=== PATIENT | male | born 1960 | race Caucasian/White ===

== ENCOUNTER 2017-08-09 10:16 | Emergency (ER) | payer SELFPAY ==
[2017-08-09 10:18] VITALS: BMI 23.3
[2017-08-09] MEDS ORDERED: Lidocaine 1% 5ml Abboject IV ONE (11:04)
[2017-08-09] MEDS ORDERED: Lidocaine 1% 20 MG/2 ML PF AMP SC ONE (11:06)
[2017-08-09] MEDS ORDERED: Lidocaine 1% 20 MG/2 ML PF AMP ONE (11:07)
[2017-08-09] MEDS: Sodium Chloride 0.9% 1,000 ML IV SCH ×13 (11:17→17:26)
--- NOTE | 2017-08-09 11:58 | ED PDOC ---
HPI: Head Injury Time Seen by Provider: 08/09/17 10:23 Chief Complaint (Nursing): Abnormal Skin Integrity Chief Complaint (Provider): laceration to left eyebrow after fall History Per: Patient History/Exam Limitations: intoxication Injury Occurred (Timing): Days Ago: Onset/Duration Of Symptoms: Days (1) Patient States: Fell Striking Head (on the concrete floor) Severity: Moderate Loss Of Consciousness: No Additional Complaint(s): 57 yr old M presents to ED by ambulance for laceration to the left eyebrow after a fall which occurred yesterday. PMHx includes chronic alcohol abuse, denies any other significant PMHx. Patient reports while walking walking and felt dizzy, held on to a cart but fell to the ground breaking his fall with his right hand, but hit his left forehead, he remembers bleeding but he "didn't think it was a big laceration" so he did not come to the hospital. Someone saw him with dry blood all over his face and called 911 today. Patient reports he was in custodial for 1 week and was released this past sunday. Since then he has had about 4 beers daily and had a couple of shot of vodka today. Denies headache, nausea, vomiting, weakness, dizziness, SOB, fevers, chills, pain or visual changes. PMD: none PMHx: chronic alcohol abuse SurgHx: cholecystectomy FMHx: mother unknown, father of alcohol cirrhosis at 35 yrs old, siblings healthy SocHx: chronic alcohol abuse x 20yrs (intermittent, last drink today, 4 beers and couple shots of vodka), denies tobacco and drugs, homeless Medications: none Allergies: NKDA Past Medical History Vital Signs: Last Vital Signs Temp 99.1 F 08/09/17 10:19 Pulse 86 08/09/17 10:19 Resp 17 08/09/17 10:19 BP 97/54 L 08/09/17 10:34 Pulse Ox 98 08/09/17 10:19 - Medical History PMH: No Chronic Diseases - Surgical History Surgical History: Cholecystectomy - Family History Family History: States: Other Other Family History: father of alcohol cirrhosis at 35 yrs old - Living Arrangements Living Arrangements: Other (homeless) - Social History Current smoker - smoking cessation education provided: No Ex-Smoker (has not smoked in the last 12 months): No Alcohol: > 2 Drinks/Day (intermittent) Drugs: Denies - Immunization History Hx Tetanus Toxoid Vaccination: No Hx Influenza Vaccination: No Hx Pneumococcal Vaccination: No - Allergies Allergies/Adverse Reactions: Allergies Allergy/AdvReac Type Severity Reaction Status Date / Time No Known Allergies Allergy Verified 08/09/17 10:31 Review of Systems Constitutional: Negative for: Fever, Chills Eyes: Positive for: Other (left eyebrow laceration ). Negative for: Vision Change ENT: Negative for: Nose Discharge, Mouth Pain Cardiovascular: Negative for: Chest Pain, Palpitations, Light Headedness Respiratory: Negative for: Cough, Shortness of Breath, Hemoptysis Gastrointestinal: Negative for: Nausea, Vomiting Musculoskeletal: Negative for: Neck Pain, Shoulder Pain, Arm Pain Skin: Positive for: Other (laceration of left eyebrow and right palm) Neurological: Negative for: Weakness, Confusion, Seizures, Altered Mental Status , Headache Physical Exam - Physical Exam Appears: Positive for: No Acute Distress (overall poor hygiene, cooperative with physical exam) Head Exam: Positive for: NORMOCEPHALIC. Negative for: ATRAUMATIC (2cm laceration to left eyebrow, no foreign body, minimal active bleeding) Skin: Positive for: Warm, Dry (superficial laceration of right palm, superficial abrasions on left hand and right knee, no active bleeding) Eye Exam: Positive for: EOMI, PERRL. Negative for: Periorbital tenderness, Conjunctival injection ENT: Negative for: Pharyngeal Erythema, Tonsillar Swelling Neck: Positive for: Painless ROM, Supple Cardiovascular/Chest: Positive for: Regular Rate, Rhythm. Negative for: Gallop , Murmur Respiratory: Positive for: Normal Breath Sounds. Negative for: Rales, Rhonchi Pulses-Carotid (L): 2+ Pulses-Carotid (R): 2+ Pulses-Dorsalis Pedis (L): 2+ Pulses-Dorsalis Pedis (R): 2+ Pulses-Post. Tibialis (L): 2+ Pulses-Post. Tibialis (R): 2+ Pulses-Radial (L): 2+ Pulses-Radial (R): 2+ Gastrointestinal/Abdominal: Positive for: Bowel Sounds (present), Soft. Negative for: Tenderness Back: Positive for: Normal Inspection. Negative for: L CVA Tenderness, R CVA Tenderness Extremity: Positive for: Normal ROM. Negative for: Tenderness, Pedal Edema, Swelling Neurologic/Psych: Positive for: Alert, residential roofer helper II-XII, Oriented - ECG O2 Sat by Pulse Oximetry: 98 - Progress ED Course And Treament: left eyebrow laceration repair, IV fluids, serum alcohol level, accucheck Procedures - Laceration/Wound Repair Left Eye Wound Length (cm): 2 Wound's Depth, Shape: into muscle Wound Explored: clean Irrigated w/ Saline (ccs): 100 Betadine Prep?: No Anesthesia: 1% Lidocaine Volume Anesthetic (ccs): 2 Wound Debrided: minimal Wound Repaired With: Sutures Suture Size/Type: 5:0, proline Number of Sutures: 5 Layer Closure?: No Wound Complexity: Simple Sterile Dressing Applied?: No (bacitracin and steri strips applied) Disposition - Clinical Impression Clinical Impression: Laceration of eyebrow, left - Patient ED Disposition Is Patient to be Admitted: No Counseled Patient/Family Regarding: Need For Followup - Disposition Referrals: [facility] [Provider Group] Disposition: Routine/Home Disposition Time: 17:48 Condition: STABLE Forms: [employer] ([place])
--- NOTE | 2017-08-09 13:24 | CT ---
PROCEDURE: CT HEAD WITHOUT CONTRAST. HISTORY: Head trauma following fall COMPARISON: No prior TECHNIQUE: Axial computed tomography images were obtained through the head/brain without intravenous contrast. Radiation dose: Total exam DLP = 799.64 mGy-cm. This CT exam was performed using one or more of the following dose reduction techniques: Automated exposure control, adjustment of the mA and/or kV according to patient size, and/or use of iterative reconstruction technique. FINDINGS: HEMORRHAGE: No acute parenchymal, subarachnoid nor extra-axial hemorrhage. BRAIN: No evidence of large acute infarct. There may be some minor chronic periventricular white matter ischemic changes. . Questionable tiny right basal ganglia chronic lacunar type infarct. Moderate generalized volume loss. VENTRICLES: No obstructive hydrocephalus. CALVARIUM: No acute calvarial fractures. Old fracture deformity left lamina papyracea with collapse of a few adjacent ethmoid air cells which are occupied by a small amount of herniated orbital fat PARANASAL SINUSES: Moderate mucosal thickening right maxillary antrum. MASTOID AIR CELLS: Unremarkable as visualized. No inflammatory changes. OTHER FINDINGS: None. IMPRESSION: No intracranial hemorrhage. Mild chronic periventricular white matter ischemic changes. Moderate volume loss. Old fracture deformity left lamina papyracea.
[2017-08-09 18:31] VITALS: BP 122/73; PULSE 75; RESP 20; TEMP 98.8; O2SAT 100
== END 2017-08-09 18:30 | disposition home or self-care (01) ==
LOC: H.ER 10:16
DX: S01.112A Laceration without foreign body of left eyelid and periocular area, initial encounter (principal); S09.90XA Unspecified injury of head, initial encounter; Z87.891 Personal history of nicotine dependence; W19.XXXA Unspecified fall, initial encounter; Z90.49 Acquired absence of other specified parts of digestive tract
CPT/HCPCS: 12011; 70450; 82948; 96360; 96372; 99285; G0480; J7040